=== PATIENT | male | born 1975 | race Asian ===

== ENCOUNTER → 2016-09-17 | Outpatient (CLI) | payer OTHER | END | disposition home or self-care (01) | LOC: CFH 07:33 | PROVIDERS: ATTEND Nurse Practitioner Family | DX: K21.9 Gastro-esophageal reflux disease without esophagitis (principal) | CPT/HCPCS: 71020; 74241; 76700 ==

== ENCOUNTER 2016-09-20 20:08 | Emergency (ER) | payer OTHER ==
[~2016-09-20] VITALS: Ht 182.9 cm; Wt 69.4 kg
[2016-09-20 20:10] VITALS: BP 127/87
[2016-09-20] MEDS ORDERED: FLUORESCEIN OPHTHALMIC 1 MG STRIP ONE (20:30)
[2016-09-20] MEDS ORDERED: PROPARACAINE OPHTH 0.5%, 15ML EACHEYE ONE (20:30)
[2016-09-20] MEDS ORDERED: FLUORESCEIN OPHTHALMIC 1 MG STRIP EACHEYE ONE (20:30)
[2016-09-20] MEDS ORDERED: PROPARACAINE OPHTH 0.5%, 15ML ONE (20:30)
== END 2016-09-20 21:08 | disposition home or self-care (01) ==
LOC: ED 20:55
DX: S05.01XA Injury of conjunctiva and corneal abrasion without foreign body, right eye, initial encounter (principal); X58.XXXA Exposure to other specified factors, initial encounter; Y93.89 Activity, other specified; Y92.89 Other specified places as the place of occurrence of the external cause; Y99.8 Other external cause status
CPT/HCPCS: 99283

== ENCOUNTER → 2020-10-16 | Outpatient (CLI) | payer OTHER | END | disposition home or self-care (01) | LOC: RAD 17:50 | PROVIDERS: ATTEND Nurse Practitioner Family | DX: R10.9 Unspecified abdominal pain (principal) | CPT/HCPCS: 76700 ==